=== PATIENT | male | born 1995 | race African-American/Black ===

== ENCOUNTER 2020-10-08 07:47 | Emergency (ER) | payer OTHER ==
[~2020-10-08] VITALS: Ht 188 cm; Wt 93.2 kg
[2020-10-08] MEDS ORDERED: ACETAMINOPHEN 500 MG TABLET PO ONE (11:45)
[2020-10-08 12:40] VITALS: BP 116/75
== END 2020-10-08 13:00 | disposition home or self-care (01) ==
LOC: EMS 07:50
DX: S09.90XA Unspecified injury of head, initial encounter (principal); V43.52XA Car driver injured in collision with other type car in traffic accident, initial encounter; Y93.89 Activity, other specified; Y92.488 Other paved roadways as the place of occurrence of the external cause; Y99.8 Other external cause status
CPT/HCPCS: 70450; 99284